=== PATIENT | female | born 1995 | race African-American/Black ===

== ENCOUNTER 2017-02-13 11:05 | Inpatient (IN) | payer MEDICAID ==
[2017-02-13] MEDS ORDERED: Measles, Mumps & Rubella Vaccine 0.5 ML SDV SUBCUT ONE (11:25)
[2017-02-13] MEDS ORDERED: Simethicone 80 MG Tab.Chew PO PRN (11:25)
[2017-02-13] MEDS ORDERED: Carboprost Tromethamine 250 MCG/1 ML Amp IM PRN (11:25)
[2017-02-13] MEDS ORDERED: Sodium Chloride 0.9% 10 ML Syringe FLUSH PRN (11:25)
[2017-02-13] MEDS ORDERED: Oxytocin 10 Units/1 ML SDV IM PRN (11:25)
[2017-02-13] MEDS ORDERED: Diphtheria,Pertussis(Acell),Tetanus Vaccine 0.5 ML SDV IM ONE (11:25)
[2017-02-13] MEDS ORDERED: Misoprostol 400 MCG (4 X 100 MCG TAB) RECTAL PRN (11:25)
[2017-02-13] MEDS ORDERED: Docusate Sodium 100 MG Cap PO PRN (11:25)
[2017-02-13] MEDS ORDERED: Benzocaine/Menthol 20%-0.5% Spray 56 GM Canister TOP PRN (11:25)
[2017-02-13] MEDS ORDERED: Zolpidem 5 MG Tab PO PRN (11:25)
[2017-02-13] MEDS ORDERED: Oxytocin/Normal Saline 30 UNIT/500 ML BAG IV SCH (11:30)
[2017-02-13] MEDS: Ibuprofen 800 MG Tab PO PRN ×2 (12:13→21:36)
[2017-02-13] MEDS ORDERED: Acetaminophen/oxyCODONE 325-5 MG Tab PO PRN (14:04)
[2017-02-13] MEDS: Acetaminophen/oxyCODONE 325-5 MG Tab PO PRN ×2 (14:15→17:58)
[2017-02-14] MEDS: Acetaminophen 325 MG Tab PO PRN ×3 (03:53→21:52)
[2017-02-14] MEDS: Ibuprofen 800 MG Tab PO PRN ×2 (08:31→17:32)
[2017-02-14] MEDS: Prenatal Multivitamin with Calcium/Folic Acid/Iron Tab PO SCH (08:31)
--- NOTE | 2017-02-14 12:33 | PN ---
DATE: 02/14/2017 SUBJECTIVE: The patient is day #1, status post spontaneous vaginal delivery. Nursing staff reports no overnight events. She has been ambulating and tolerating a regular diet without difficulty. She reports some burning on urination as well as some blood in her urine. She slept well overnight. She reports some lower abdominal cramping, rated at a 7/10; she feels that these are well controlled on her current medications. She is not passing gas and has not yet had a bowel movement. She denies fevers, chills, chest pain, shortness of breath, lower extremity edema, or calf tenderness. She also denies nausea or vomiting. . [facility] was called and reported that her HIV test done in August was negative; they are sending over those records via mail. OBJECTIVE: Vital Signs: Stable overnight, within normal limits. She remained afebrile. General: Alert, well oriented, cooperative, and in no acute distress. Lungs: Clear to auscultation bilaterally. Heart: Regular rate and rhythm. Normal S1 and S2. No murmurs. Abdomen: Soft. Appropriately tender in the lower 2 quadrants. Bowel sounds present. Fundus firm and below the umbilicus. Extremities: Lower extremities nontender without edema. PERTINENT LABS: Hemoglobin 8.8. GBS positive. ASSESSMENT: 1. day #1. 2. Maternal anemia. 3. Group B streptococcus positive. PLAN: Start iron supplementation, ferrous sulfate 325 mg p.o. b.i.d. with meals. Repeat CBC without differential tomorrow morning. Continue routine monitoring and plan for discharge tomorrow morning. [facility] /[id number] MTDD
[2017-02-14] MEDS: Ferrous Sulfate 325 MG Tab PO SCH (17:32)
[2017-02-15] MEDS: Ibuprofen 800 MG Tab PO PRN ×2 (02:31→11:22)
[2017-02-15] MEDS: Ferrous Sulfate 325 MG Tab PO SCH (08:16)
[2017-02-15] MEDS: Prenatal Multivitamin with Calcium/Folic Acid/Iron Tab PO SCH (08:16)
[2017-02-15] MEDS: Acetaminophen 325 MG Tab PO PRN (08:16)
--- NOTE | 2017-02-15 08:59 | HP ---
PATIENT IDENTIFICATION: Silvina Evans is a 21-year-old, G2, P1-0-0-1, intrauterine at 36 and 3/7 weeks, who presents via ambulance with contractions and vaginal leaking. HISTORY OF PRESENT ILLNESS: The patient states vaginal leaking started approximately 9:30 a.m. on date of admission, thereafter, started having contractions. She was evaluated initially at the [place] [facility] and transferred here via ambulance. Upon arrival, the patient was breathing through her contractions, stating she had an urge to push. She relates the above history, describes clear fluid. To put this in context, she was seen on 02/10/2017, given 2 doses of betamethasone some terbutaline and treated with Macrobid for a potential bladder infection. At that time, she had contractions, and had a workup done, and was not felt to be a transfer candidate due to her history of fast labors and deliveries. Her contractions slowed and she was not found to be in labor, and was sent home by Dr. Wall. Records were called for, reviewed as below, and supplemented by the patient history. ANTEPARTUM LABS: ABO blood type is O positive. Negative antibody. Rubella is not available as well as RPR, hepatitis B, hep C, HIV, GC, and Chlamydia. GBS positive bacteriuria from visit on 02/10/2017 with vaginal rectal culture was suspected group B strep, final sensitivity and ID pending. LABORATORY DATA: White cell count 02/10/2017, was 8.5; hemoglobin 9.9; platelets 253. Urinalysis at that time 75 to 100 white cells with moderate epithelial and bacteria cells with moderate occult blood and leukocyte esterase with a urine drug screen negative. Currently, awaiting labs from [facility], and we will call for them as well as order them here if any chance if they have not been done or cannot be found. OBSTETRIC HISTORY: In 2013, had a fast spontaneous vaginal delivery around 40 weeks delivering male, weighing 5 pounds 9 ounces. PAST MEDICAL/PAST SURGICAL HISTORY: Otherwise, reviewed and felt to be noncontributory. ALLERGIES: None. MEDICATIONS: vitamins. FAMILY HISTORY: Brother with diabetes mellitus. Otherwise, no significant family history listed from chart review. SOCIAL HISTORY: Lives near [place]. Smokes 3 to 4 cigarettes per day. Last illicit drug use was with meth about a month ago. She states that her other son is with her grandma and soon to be with her. She presents with her male partner, aRfael. REVIEW OF SYSTEMS: Quickly obtained, otherwise, felt to be noncontributory. The patient describes clear fluid, contractions increasing in frequency and intensity and causing her breathe through them. OBJECTIVE: Vital Signs: Temperature 97.5, heart rate 128, blood pressure 94/79, respiratory rate 24. Appearance: Female appears stated age, breathing through her contractions, screaming she has the urge to push. Otherwise, answering questions appropriately in between. HEENT: Head is atraumatic. EOMS grossly intact. No scleral icterus. No obvious otorhinorrhea. Mucous membranes are moist. Neck: No obvious tenderness. Lungs: Clear to auscultation bilaterally. No increased work of breathing. Heart: S1 and S2. Regular rate and rhythm. Abdomen: Gravid. Osmin's indeterminate. Nontender. Nondistended. Bowel sounds positive. No other organomegaly, pulsatile masses, or obvious hernias. No rebound, rigidity, or guarding. With tattoos on her abdomen noted. Genitourinary: Normal external female genitalia. Initial evaluation done in the ER as she was being wheeled to the OB area, she was found to be complete at +1 station. Vertex suspected. No bag of water felt, with clear vaginal fluid emanating from the vaginal orifice. Extremities: No peripheral edema. Deep tendon reflexes 3 to 4 out of 4 bilaterally and symmetric. Psychiatric: Mood and affect are congruent. Judgment and insight intact. Skin: No cyanosis, clubbing, or jaundice. LABORATORY DATA: pending is a CBC from today. heart tones quickly monitored did reveal them to be in the 120s to 130s at times, but then dropped down into the 90s with and after a contraction. Subsequently, due to the bradycardia and patient's urge to push, she was instructed to push with the next contraction, and had a spontaneous vaginal delivery. Please see delivery note for further details. ASSESSMENT: 1. Intrauterine at 36 and 3/7 weeks, by chart review and call to [facility], with physician stating, the patient had early ultrasound giving her an EDC of March 10, 2017. 2. Active labor. 3. Advanced cervical dilation. 4. Spontaneous rupture membranes at 9:30 with clear fluid. 5. History of fast deliveries. 6. Urinary tract infection with group B strep bacteriuria. 7. Status post betamethasone 02/10 to 02/11 with 2 doses approximately 24 hours apart. 8. bradycardia with the delivery of the infant shortly thereafter. Please see delivery note. 9. G2, P1-0-0-1. PLAN: The patient was admitted fast delivery was noted. Please see delivery note for further details. At current time of dictation, mother and are stable. Please see orders for further details. We will attempt to obtain labs for [facility] as well as if unable, do the care labs that are due. The patient and her male partner understands and agrees the above treatment. [facility] /[id number]
--- NOTE | 2017-02-15 08:59 | PN ---
DATE: 02/14/2016 ADDENDUM: The records called for, reviewed as below, and supplemented by the patient's history. August of 2016, was rubella immune. Syphilis nonreactive. Hep B negative. HIV was scanned in, unable to find the results of this, but by phone report does not appear to be positive with reviewing previous records and OB notes. There is no mention of a positive HIV. On 01/28/2017, urine drug screen positive for amphetamines and methamphetamines. Labs with a hemoglobin 9.9 on 02/10/2017. ASSESSMENT: Per H and P, in addition to urine drug screen that is confirmed with methamphetamine, amphetamine on 01/28/2017, through [place] records, as well as maternal anemia with hemoglobin of 9.9 on 02/10/2017. PLAN: Please see admit history and physical for further details. We will continue to follow clinically and closely. Of note, the patient did admit to the last meth and amphetamine usage was about a month ago. [facility] /[id number]
--- NOTE | 2017-02-15 09:13 | DEL ---
DATE: 02/14/2016 PREOPERATIVE DIAGNOSES: 1. Intrauterine 36 and 3/7 weeks, by chart review. 2. Active labor. 3. Advanced cervical dilation. 4. Spontaneous rupture of membranes at 9:30 a.m., date of admission, clear. 5. History of fast deliveries. 6. Group B Streptococcus positive bacteriuria (antibiotics attempted to be given, but delivery was so fast and was unable to be started). 7. Suspected group B Streptococcus positive vaginal, rectal culture done earlier this week. 8. Status post betamethasone 02/10 to 02/11 x 2 doses approximately 24 hours apart. 9. bradycardia. 10.G2, P1-0-0-1. 11.Admitted meth usage approximately a month ago. POSTOPERATIVE DIAGNOSES: 1. Intrauterine 36 and 3/7 weeks-delivered. 2. Active labor. 3. Advanced cervical dilation. 4. Spontaneous rupture of membranes at 9:30 a.m., date of admission, clear. 5. History of fast deliveries. 6. Group B Streptococcus positive bacteriuria (antibiotics attempted to be given, but delivery was so fast and was unable to be started). 7. Suspected group B Streptococcus positive vaginal rectal culture done earlier this week. 8. Status post betamethasone 02/10 to 02/11 x 2 doses approximately 24 hours apart. 9. bradycardia. 10.G2, P1-0-0-1. 11.Admitted meth usage approximately a month ago. 12.First-degree perineal abrasion, nonbleeding, non-repaired after discussion with the patient. PROCEDURE PERFORMED: Spontaneous vaginal delivery. BRUSH CLEARER SURVEYING: Domingo Aaron, MS-III ANESTHESIA/ANALGESIA: None. ESTIMATED BLOOD LOSS: 150 mL. FINDING: Male with scores of 9 and 9, with weight pending. SUMMARY OF EVENTS: The patient is a 21-year-old, G2, P1-0-0-1, intrauterine at 36 and 3/7 weeks by chart review with previous admission 02/10 to 02/11 with contraction, given 2 doses of betamethasone, noted to have GBS bacteria with culture just returning as well suspected vaginal rectal culture for GBS positive status. She presented via ambulance after initial evaluation in [facility]. Upon presentation, she was found to be in the second stage of labor and was wheeled to the OB room as soon as possible. Penicillin was called for stat given her history. Subsequent room was set up while penicillin and Pitocin were attempting to be obtained by charge nurse. Subsequently with monitoring, bradycardia was noted and with the next push due to concerns with status, the patient was instructed to start pushing with contractions. Subsequently vertex was delivered in a LEROY presentation followed by anterior and posterior shoulder as well as the rest of the without difficulty. Mouth and nares were suctioned. Cord was doubly clamped cut. Infant was brought over to team for resuscitation. Then, approximately 10 mL of cord blood was obtained for labs. Placenta then delivered with gentle cord traction and fundal massage within 10 minutes. Perineum, vagina, and perirectal areas were then examined and was noted to have a first-degree perineal abrasion, nonbleeding, non-repaired after discussion with the patient. Mother and infant are currently stable at the time of dictation. [facility] /[id number]
--- NOTE | 2017-02-15 09:46 | DISCH ---
ADMIT DIAGNOSES: 1. Intrauterine 36 and 3/7 weeks, by chart review and records from [place]. 2. Active labor upon admission. 3. Advanced cervical dilation upon admission. 4. Spontaneous rupture membranes at 9:30 a.m. on date of admission. 5. History of fast deliveries. 6. Group B strep bacteriuria in the . 7. Group B strep positive vaginal and rectal culture. 8. Status post betamethasone February 10 to February 11 x 2 doses. 9. G2, P1-0-0-1. 10.Admitted meth usage with positive drug screen from [place] records for methamphetamines, amphetamines in January 2017. DISCHARGE DIAGNOSES: 1. Intrauterine 36 and 3/7 weeks, by chart review and records from [place]-delivered. 2. Active labor upon admission. 3. Advanced cervical dilation upon admission. 4. Spontaneous rupture membranes at 9:30 a.m. on date of admission. 5. History of fast deliveries. 6. Group B strep bacteriuria in the . 7. Group B strep positive vaginal and rectal culture. 8. Status post betamethasone February 10 to February 11 x 2 doses. 9. G2, P1-0-0-1. 10.Admitted meth usage with positive drug screen from [place] records for methamphetamines, amphetamines in January 2017. 11. bradycardia. 12.First-degree perineal abrasion, nonbleeding, non-repaired after discussion with the patient. PROCEDURE PERFORMED: Spontaneous vaginal delivery per Dr. Proctor. HISTORY OF PRESENT ILLNESS: Please see H and P. SUMMARY OF HOSPITAL COURSE: The patient was admitted on the above date with the above diagnoses. Due to her GBS positive status, penicillin was called to be given stat. She subsequently went on to have a rapid fast delivery, came in via ambulance, and delivered upon arrival to the OB floor. This yielded a male, scores 9 and 9, weighing 6 pounds 10 ounces. Please see delivery note for further details. Please see progress notes for serial evaluations. Discharge evaluation, the patient was tolerating p.o., ambulating, urinating, passing flatus, and requesting discharge. PHYSICAL EXAMINATION: Vital Signs: Last set of vitals of updated and listed in the chart; temperature 97.8, heart rate 97, blood pressure 117/75, respiratory rate 16. Lungs: Clear to auscultation bilaterally. Heart: S1 and S2. Regular rate and rhythm. Abdomen: Firm uterus to approximately right at the umbilicus. Extremities: No peripheral edema. No calf pain. DISCHARGE LABORATORY DATA: White cell count 10.3, hemoglobin 8.6, platelets 289. CONDITION ON DISCHARGE COMPARED TO CONDITION ON ADMISSION: Improved. DISCHARGE INSTRUCTION: 1. Diet. As tolerated. 2. Activity: No lifting more than 20 pounds, no sit-ups, straining, and pelvic rest for the next 6 weeks with immediate return to fertility discussed with the patient. 3. Reasons to return or go to the emergency room discussed with the patient in detail including, but not limited to, temperature greater than 100.4, foul- smelling discharge, red, hot tender breasts, or increased vaginal bleeding. DISCHARGE MEDICATIONS: 1. [id number] Tylenol or ibuprofen for pain. 2. Iron sulfate 325 b.i.d. x6 weeks. 3. vitamins x6 weeks. I did discuss with mother in the interim reasons to return or go to the emergency room with her infant as well as ramifications of not following up and did discuss with the patient following up 6 weeks for visit. [facility] /[id number] TEO
== END 2017-02-15 13:15 | disposition home or self-care (01) | DRG 775 ==
LOC: DL.OBCHECK 11:05 → DL.OB 11:06 → OBSVTOIN 11:08 → DL.OB 11:08
PROVIDERS: ADMIT Obstetrics & Gynecology; ATTEND Obstetrics & Gynecology
PROC: 10E0XZZ Delivery of Products of Conception, External Approach (ICD-10-PCS; principal; 2017-02-13)
DX: O42.013 Preterm premature rupture of membranes, onset of labor within 24 hours of rupture, third trimester (principal); O99.324 Drug use complicating childbirth; Z37.0 Single live birth; O99.824 Streptococcus B carrier state complicating childbirth; O99.02 Anemia complicating childbirth; O76 Abnormality in fetal heart rate and rhythm complicating labor and delivery; Z3A.36 36 weeks gestation of pregnancy; F15.90 Other stimulant use, unspecified, uncomplicated; O70.0 First degree perineal laceration during delivery
CPT/HCPCS: 36415; 59409; 85027; 86592; 86703; 86762; 86803; 87340; 90715; A9270-GY